=== PATIENT | female | born 1980 | race American Indian/Alaskan Native ===

== ENCOUNTER 2016-08-11 09:25 | Inpatient (IN) | payer MEDICAID ==
[2016-08-11] MEDS ORDERED: ePHEDrine SULFATE IV PRN (11:30)
[2016-08-11] MEDS ORDERED: PITOCin/NS 30 UNIT/500ML 500 ML IV SCH (11:30)
[2016-08-11] MEDS ORDERED: SUBLIMAZE IV PRN (11:30)
[2016-08-11] MEDS ORDERED: LACTATED RINGERS 1,000 ML IV SCH (11:30)
[2016-08-11] MEDS ORDERED: PITOCin/NS 20 UNIT/1000ML DRIP 1,000 ML IV SCH (11:30)
[2016-08-11] MEDS ORDERED: STADOL IV PRN (11:30)
[2016-08-11] MEDS ORDERED: MINERAL OIL PO PRN (12:00)
[2016-08-11] MEDS ORDERED: BRETHINE SUB-Q PRN (12:00)
[2016-08-11] MEDS ORDERED: BRETHINE IVP PRN (12:00)
[2016-08-11] MEDS ORDERED: POLYCILLIN/NS 2 GM/100 ML 100 ML IV ONE (12:00)
[2016-08-11] MEDS: PITOCin/NS 30 UNIT/500ML 500 ML IV SCH ×3 (12:17→14:42)
[2016-08-11 12:35] LABS: Hematocrit 33.3 % (30.3-42.9); Hemoglobin 10.4 gm/dl (10.1-14.3); Mean Corpuscular HGB Conc 31 % (30-34); Mean Corpuscular Volume 70 fl (79-97); Platelet Count 171 K/mm3 (140-440); Red Blood Count 4.75 M/mm3 (3.65-5.03); White Blood Count 8.6 K/mm3 (4.5-11.0)
[2016-08-11 12:45] LABS: Mean Corpuscular Hemoglobin 22 pg (28-32)
[2016-08-11 12:56] LABS: Alanine Aminotransferase 12 units/L (7-56); Uric Acid 6.5 mg/dL (3.5-7.6)
--- NOTE | 2016-08-11 13:25 | History and Physical Report ---
History of Present Illness Date of examination: 08/11/16 Date of admission: 08/11/16 09:38 History of present illness: 36 yo LMP EDC 08/20/16 @ 38.5 weeks gestation presented with SROm this am, clear fluid. Transfer into care at 30 weeks gestation. 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 History of hypertension no meds. Voiced positive FM, denies vaginal bleeding. 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 History: herpes Social history: no significant social history - Obstetrical History Expected Date of Delivery: 08/20/16 Actual Gestation: 38 Week(s) 5 Day(s) : 2 Para: 1 (7.3oz male 1997) Hx # Term Pregnancies: 1 Number of Living Children: 1 Medications and Allergies Allergies Allergy/AdvReac Type Severity Reaction Status Date / Time Sulfa (Sulfonamide Allergy Swelling Verified 04/24/15 10:25 Antibiotics) THORAT AND FACIAL Home Medications Medication Instructions Recorded Confirmed Last Taken Type L.acidoph,Paracasei, B.lactis 1 each PO QDAY 04/24/15 05/02/15 05/01/15 History [Probiotic] Mv,Ca,Min/Iron Fum/FA/Lyco/Lut 1 each PO QDAY 04/24/15 05/02/15 05/01/15 History [Complete Multi Tablet] buPROPion [Wellbutrin] 75 mg PO BID 04/24/15 05/02/15 05/01/15 History Losartan/Hydrochlorothiazide 1 tab PO QDAY 04/29/15 05/02/15 05/01/15 History [Hyzaar 100-25 TAB] Active Meds: Active Medications Butorphanol Tartrate (Stadol) 2 mg IV Q2H PRN PRN Reason: Pain , Severe (7-10) Ephedrine Sulfate (Ephedrine Sulfate) 10 mg IV Q2M PRN PRN Reason: Hypotension Stop: 08/11/16 15:30 Fentanyl (Sublimaze) 100 mcg IV Q2H PRN PRN Reason: Labor Pain Ampicillin Sodium (Polycillin/Ns 1 Gm/50 Ml) 50 mls @ 100 mls/hr IV Q4H TEMO PRN Reason: Protocol Lactated Ringer's (Lactated Ringers) 1,000 mls @ 125 mls/hr IV DIRECT TEMO Last Admin: 08/11/16 12:14 Dose: 125 mls/hr Oxytocin/Sodium Chloride (Pitocin/Ns 20 Unit/1000ml Drip) 1,000 mls @ 125 mls/ hr IV DIRECT TEMO Oxytocin/Sodium Chloride (Pitocin/Ns 30 Unit/500ml) 500 mls @ 2 mls/hr IV TITR TEMO PRN Reason: Protocol Last Admin: 08/11/16 12:17 Dose: 2 mls/hr Oxytocin/Sodium Chloride (Pitocin/Ns 30 Unit/500ml) 500 mls @ 1 mls/hr IV TITR TEMO; 1 MILLIUNITS/MIN PRN Reason: Protocol Mineral Oil (Mineral Oil) 30 ml PO QHS PRN PRN Reason: Constipation Review of Systems All systems: negative Genitourinary: deferred, normal appearance, leakage of fluid, contractions, no genital sores - Vital Signs Vital signs: Vital Signs Pulse Pulse Ox 85 99 08/11/16 09:56 08/11/16 09:56 Temp Pulse Resp BP Pulse Ox 72 140/84 99 08/11/16 13:16 08/11/16 12:18 08/11/16 13:16 - Physical Exam Breasts: Positive: deferred Abdomen: Positive: normal appearance Genitourinary (Female): Positive: normal external genitalia, normal perenium. Negative: perineal/vulvar lesions Vulva: both: normal - Obstetrical FHR: category 1 Uterine Contraction Monitor Mode: External Cervical Dilatation: 2 (per RN exam) Results Result Diagrams: 08/11/16 11:50 08/11/16 11:50 Abnormal lab results 08/11/16 08/11/16 Range/Units 11:50 11:50 MCV 70 L (79-97) fl MCH 22 L (28-32) pg RDW 16.0 H (13.2-15.2) % AST 60 H (5-40) units/L All other labs normal. Assessment and Plan IUP at 38.5 weeks gestation PROM at term Remote from delivery +GBS HSV 2- no lesion P: GBS prophylaxis Pitocin induction PIH panel Anticipate
[2016-08-11] MEDS ORDERED: POLYCILLIN/NS 1 GM/50 ML 50 ML IV SCH (16:00)
--- NOTE | 2016-08-11 16:35 | Procedure Note ---
OB Delivery Note - Delivery Date of Delivery: 08/11/16 (6-12.5oz female @ 1546) Surgeon: TORREY HILLS Estimated blood loss: 100cc - Vaginal Delivery presentation: vertex Delivery position: OA Delivery induction: oxytocin Delivery monitor: external FHT, external uterine Route of delivery: Delivery placenta: spontaneous Delivery cord: 3 umbilical vessels Episiotomy: none Delivery laceration: none Anesthesia: none - Infant B at 1 minute: 8 at 5 minutes: 9 Gender: Female ( viable female spont. in bed. Dr. Helder Mena in room after. skin to skin. Spont placenta. Bleeding scant. No lacerations. Mother and infant stable. +GBS, abx at noon, inadequate treatment.)
[2016-08-11] MEDS ORDERED: PHENERGAN PO PRN (16:36)
[2016-08-11] MEDS ORDERED: BENADRYL PO PRN (16:36)
[2016-08-11] MEDS ORDERED: LANSINOH TP PRN (16:36)
[2016-08-11] MEDS ORDERED: ZOFRAN IV PRN (16:36)
[2016-08-11] MEDS ORDERED: TYLENOL PO PRN (16:36)
[2016-08-11] MEDS ORDERED: DERMOPLAST TP PRN (16:36)
[2016-08-11] MEDS ORDERED: TUCKS PAD TP PRN (16:36)
[2016-08-11] MEDS ORDERED: PHENERGAN PR PRN (16:36)
[2016-08-11] MEDS ORDERED: MILK OF MAGNESIA PO PRN (16:36)
[2016-08-11] MEDS ORDERED: DULCOLAX PR PRN (16:36)
[2016-08-11] MEDS ORDERED: SODIUM CHLORIDE FLUSH SYRINGE 10 ML IV SCH (17:00)
[2016-08-11] MEDS: NORCO 5/325 PO PRN (18:51)
[2016-08-11] MEDS: MOTRIN PO SCH ×2 (18:54→23:27)
[2016-08-11] MEDS: FEOSOL PO SCH (21:40)
[2016-08-12] MEDS: MOTRIN PO SCH ×3 (05:20→18:10)
[2016-08-12] MEDS ORDERED: BOOSTRIX IM ONE (06:00)
[2016-08-12 06:19] LABS: Hematocrit 26.8 % (30.3-42.9); Hemoglobin 8.5 gm/dl (10.1-14.3)
--- NOTE | 2016-08-12 09:07 | Progress Note ---
Assessment and Plan O: VSS AF PP H/H: 8.5/26.8 A: Stable PP Day1 +GBS inadequate treatment Anemia P: Iron BID D/C am Routine orders Subjective - Subjective Date of service: 08/12/16 Interval history: 36 yo LMP EDC 08/20/16 @ 38.5 weeks gestation presented with SROm this am, clear fluid. Transfer into care at 30 weeks gestation. 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 History of hypertension no meds. Voiced positive FM, denies vaginal bleeding. Patient reports: appetite normal, voiding normally, pain well controlled, flatus , ambulating normally [place]: doing well, nursing well Objective - Vital Signs Latest vital signs: Vital Signs Temp Pulse Pulse Resp BP BP Pulse Ox 08/12/16 08:37 98.2 F 60 18 127/72 08/12/16 01:40 98.5 F 66 18 129/80 08/11/16 20:00 98.6 F 64 18 131/77 08/11/16 17:30 98.5 F 62 18 136/80 08/11/16 16:48 93 H 141/72 08/11/16 16:33 79 139/75 08/11/16 16:19 82 140/90 08/11/16 16:03 91 H 130/98 08/11/16 15:45 66 93 08/11/16 15:44 99 H 100 08/11/16 15:42 106 H 169/83 08/11/16 15:34 91 H 99 08/11/16 15:33 83 212/98 08/11/16 15:29 71 99 08/11/16 15:24 86 100 08/11/16 15:22 82 170/99 08/11/16 15:19 88 98 08/11/16 15:14 75 99 08/11/16 15:13 71 176/106 08/11/16 15:09 82 98 08/11/16 15:04 74 98 08/11/16 15:03 85 206/95 08/11/16 14:59 72 99 08/11/16 14:54 74 98 08/11/16 14:49 96 H 98 08/11/16 14:44 77 98 08/11/16 14:43 76 198/105 08/11/16 14:39 74 97 08/11/16 14:34 69 96 08/11/16 14:29 79 98 08/11/16 14:24 65 96 08/11/16 14:19 87 97 08/11/16 14:14 95 H 97 08/11/16 14:06 82 98 08/11/16 14:01 86 98 08/11/16 14:00 98.1 F 08/11/16 13:56 79 97 08/11/16 13:54 71 164/82 08/11/16 13:53 66 92 08/11/16 13:51 78 99 08/11/16 13:46 81 97 08/11/16 13:41 82 98 08/11/16 13:36 73 100 08/11/16 13:33 18 08/11/16 13:31 79 100 08/11/16 13:26 72 100 08/11/16 13:21 75 99 08/11/16 13:16 72 99 08/11/16 13:11 77 100 08/11/16 13:06 73 99 08/11/16 13:01 81 99 08/11/16 12:56 72 99 08/11/16 12:51 75 99 08/11/16 12:46 66 99 08/11/16 12:41 70 99 08/11/16 12:36 63 99 08/11/16 12:31 71 99 08/11/16 12:26 72 99 08/11/16 12:21 69 99 08/11/16 12:18 77 140/84 08/11/16 12:16 72 99 08/11/16 12:11 69 99 08/11/16 12:06 73 99 08/11/16 12:01 82 99 08/11/16 11:56 66 99 08/11/16 11:51 67 99 08/11/16 11:46 65 99 08/11/16 11:41 71 99 08/11/16 11:36 67 99 08/11/16 11:31 74 99 08/11/16 11:26 68 99 08/11/16 11:21 65 99 08/11/16 11:16 76 99 08/11/16 11:11 74 99 08/11/16 11:06 76 98 08/11/16 11:01 81 98 08/11/16 10:56 70 98 08/11/16 10:51 69 99 08/11/16 10:46 74 99 08/11/16 10:41 67 99 08/11/16 10:36 70 98 08/11/16 10:31 74 98 08/11/16 10:26 65 99 08/11/16 10:21 88 99 08/11/16 10:16 74 99 08/11/16 10:11 67 98 08/11/16 10:06 69 99 08/11/16 10:01 80 99 08/11/16 09:58 85 146/94 08/11/16 09:57 69 140/89 08/11/16 09:56 85 99 Intake and Output 08/11/16 08/12/16 08/12/16 22:59 06:59 14:59 Intake Total 500 845 Output Total 1300 Balance 500 -455 Intake: IV 500 125 PITOCin/NS 20 UNIT/1000ML 500 125 DRIP 1,000 ML @ 125 mls/ hr IV DIRECT TEMO Rx#: [id number] Intake, Free Water 720 Output: Urine 1300 Void 1300 Other: Total, Output Amount 500 Estimated Blood Loss 100 - Exam Breasts: Present: normal Lungs: Present: Normal air movement Abdomen: Present: normal appearance, soft. Absent: distention, tenderness Vulva: both: normal Uterus: Present: normal, firm, fundal height below umbilicus (2 below, ML). Absent: bogginess, tenderness - Labs Labs: Abnormal lab results 08/11/16 08/11/16 08/12/16 Range/Units 11:50 11:50 05:43 Hgb 8.5 L (10.1-14.3) gm/dl Hct 26.8 L D (30.3-42.9) % MCV 70 L (79-97) fl MCH 22 L (28-32) pg RDW 16.0 H (13.2-15.2) % AST 60 H (5-40) units/L
[2016-08-12] MEDS: PRENATAL VITAMIN PO SCH (11:51)
[2016-08-12] MEDS: FEOSOL PO SCH ×2 (11:51→21:51)
[2016-08-12] MEDS ORDERED: M-M-R II VACCINE SUB-Q ONE (16:36)
[2016-08-13] MEDS: MOTRIN PO SCH ×3 (00:10→14:15)
[2016-08-13] MEDS: NORCO 5/325 PO PRN (04:14)
--- NOTE | 2016-08-13 09:03 | Progress Note ---
Assessment and Plan - Patient Problems (1) Active labor at term Current Visit: Yes Status: Acute Plan to address problem: Patient doing well discharge home Subjective - Subjective Date of service: 08/13/16 Interval history: The patient is without any significant complaints. Her pain is being well controlled. Patient reports: appetite normal, voiding normally, pain well controlled [place]: doing well Objective - Vital Signs Latest vital signs: Vital Signs Temp Pulse Resp BP 08/12/16 23:45 98.5 F 80 18 135/83 08/12/16 16:16 9.3 F L 62 18 132/72 Intake and Output 08/12/16 08/13/16 08/13/16 22:59 06:59 14:59 Intake Total 740 480 Output Total 500 Balance 240 480 Intake: Oral 740 Intake, Free Water 480 Output: Urine 500 Void 500 Other: Total, Intake Amount 740 Total, Output Amount 500 # Voids Void 500 1 - Exam Abdomen: Present: normal appearance Uterus: Present: normal, firm
--- NOTE | 2016-08-13 09:04 | Discharge Summary ---
Providers - Providers Date of Admission: 08/11/16 09:38 Date of discharge: 08/13/16 Attending physician: TODD MURPHY Primary care physician: TODD MURPHY Hospitalization Reason for admission: active labor, rupture of membranes Delivery: Other procedures: none Discharge diagnosis: IUP at term delivered [place] baby: female Hospital course: The patient was admitted to labor and delivery with spontaneous rupture membranes. The patient has successful vaginal delivery. course was uneventful. Condition at discharge: Good Disposition: DISCHARGED TO HOME OR SELFCARE - Discharge Diagnoses (1) Active labor at term Status: Acute Plan - Discharge Medications Prescriptions: HYDROcodone/APAP 5-325 [[place] 5/325] 1 each PO Q6HR PRN #30 tablet PRN Reason: Pain Ibuprofen [Motrin] 800 mg PO Q8HR PRN #60 tablet PRN Reason: Pain - Provider Discharge Summary Activity: no sex for 6 weeks, no heavy lifting 4 weeks, no strenuous exercise Diet: routine Instructions: routine Additional instructions: [] Smoking cessation referral if applicable(refer to patient education folder for contact #) [] Refer to [facility] Booklet Call your doctor immediately for: * Fever > 100.5 * Heavy vaginal bleeding ( >1 pad per hour) * Severe persistent headache * Shortness of breath * Reddened, hot, painful area to leg or breast * Drainage or odor from incision. * Keep incision clean and dry at all times and follow doctor's instructions regarding bathing/showering Follow-up in 4 weeks for visit
[2016-08-13] MEDS: FEOSOL PO SCH (14:15)
[2016-08-13] MEDS: PRENATAL VITAMIN PO SCH (14:15)
[2016-08-13 17:04] VITALS: BP 136/90
== END 2016-08-13 17:10 | disposition home or self-care (01) | DRG 774 ==
LOC: TRG 09:25 → LD 09:38 → OB 17:39
PROVIDERS: ADMIT Obstetrics & Gynecology; ATTEND Obstetrics & Gynecology
PROC: 10E0XZZ Delivery of Products of Conception, External Approach (ICD-10-PCS; principal; 2016-08-11)
PROC: 3E033VJ Introduction of Other Hormone into Peripheral Vein, Percutaneous Approach (ICD-10-PCS; 2016-08-11)
PROC: 3E0234Z Introduction of Serum, Toxoid and Vaccine into Muscle, Percutaneous Approach (ICD-10-PCS; 2016-08-12)
DX: O42.92 Full-term premature rupture of membranes, unspecified as to length of time between rupture and onset of labor (principal); O98.52 Other viral diseases complicating childbirth; B00.9 Herpesviral infection, unspecified; O36.8930 Maternal care for other specified fetal problems, third trimester, not applicable or unspecified; O10.92 Unspecified pre-existing hypertension complicating childbirth; O99.824 Streptococcus B carrier state complicating childbirth; O90.81 Anemia of the puerperium; D64.9 Anemia, unspecified; O09.523 Supervision of elderly multigravida, third trimester; Z3A.38 38 weeks gestation of pregnancy; Z37.0 Single live birth; Z88.2 Allergy status to sulfonamides; Z79.899 Other long term (current) drug therapy; Z23 Encounter for immunization
CPT/HCPCS: 36415; 82565; 84450; 84460; 84550; 85014; 85018; 85027; 99211; A6250; G0463; J0290; J0595; J2590; J7120

== ENCOUNTER 2016-09-08 15:28 | Inpatient (IN) | payer MEDICAID ==
[2016-09-08] MEDS ORDERED: MOTRIN PO PRN (15:38)
[2016-09-08] MEDS ORDERED: MYLICON PO PRN (15:38)
[2016-09-08] MEDS ORDERED: ALUM-MAG HYDROX-SIMETH 200-200-20MG/5ML PO PRN (15:38)
[2016-09-08] MEDS ORDERED: ZOFRAN IV PRN (15:38)
[2016-09-08] MEDS ORDERED: SENOKOT S PO PRN (15:38)
[2016-09-08] MEDS ORDERED: NORCO 5/325 PO PRN (15:38)
[2016-09-08] MEDS ORDERED: COLACE PO PRN (15:38)
[2016-09-08] MEDS ORDERED: MILK OF MAGNESIA PO PRN (15:38)
[2016-09-08] MEDS ORDERED: AMBIEN PO PRN (15:38)
[2016-09-08] MEDS ORDERED: TYLENOL PO PRN (15:38)
--- NOTE | 2016-09-08 15:53 | History and Physical Report ---
History of Present Illness Date of examination: 09/08/16 Chief complaint: elevated BP with PIH S&S History of present illness: 36 yo with viable female 08/11/16 presented to office for routine OB visit with BP 142/92, 170/110. Also voiced history of chronic hypertension and migraine headache with incidence of blurred vision, and scotoma, denies epigastic pain. Patient was a transfer into our care at 30 weeks and was takin Labetalol 200mg BID but stopped because BP where WNL. Past History Past Medical History: hypertension [employer] History: herpes - Obstetrical History : 2 Para: 2 Medications and Allergies Allergies Allergy/AdvReac Type Severity Reaction Status Date / Time Sulfa (Sulfonamide Allergy Swelling Verified 04/24/15 10:25 Antibiotics) THORAT AND FACIAL Home Medications Medication Instructions Recorded Confirmed Last Taken Type L.acidoph,Paracasei, B.lactis 1 each PO QDAY 04/24/15 05/02/15 05/01/15 History [Probiotic] Mv,Ca,Min/Iron Fum/FA/Lyco/Lut 1 each PO QDAY 04/24/15 05/02/15 05/01/15 History [Complete Multi Tablet] buPROPion [Wellbutrin] 75 mg PO BID 04/24/15 05/02/15 05/01/15 History Losartan/Hydrochlorothiazide 1 tab PO QDAY 04/29/15 05/02/15 05/01/15 History [Hyzaar 100-25 TAB] Vit-Fe Fumar-FA [ 1 tab PO QDAY 08/11/16 08/11/16 08/10/16 History Vitamin] HYDROcodone/APAP 5-325 [[place] 1 each PO Q6HR PRN #30 tablet 08/13/16 Unknown Rx 5/325] Ibuprofen [Motrin] 800 mg PO Q8HR PRN #60 tablet 08/13/16 Unknown Rx Active Meds: Active Medications Acetaminophen (Tylenol) 650 mg PO Q4H PRN PRN Reason: Pain MILD(1-3)/Fever >100.5/CHAPIN Acetaminophen/Hydrocodone Bitart ([place] 5/325) 1 each PO Q4H PRN PRN Reason: sevre pain Al Hydrox/Mg Hydrox/Simethicone (Alum-Mag Hydrox-Simeth 025-789-90mn/5ml) 30 ml PO Q6H PRN PRN Reason: Indigestion Docusate Sodium (Colace) 100 mg PO Q12H PRN PRN Reason: Constipation Lactated Ringer's (Lactated Ringers) mls @ 75 mls/hr IV DIRECT TEMO Magnesium Sulfate (Magnesium Sulfate 40gm/1000ml) 1,000 mls @ 50 mls/hr IV DIRECT TEMO PRN Reason: 2 GM/HR Magnesium Sulfate (Magnesium Sulfate 4gm/100ml) mls @ 300 mls/hr IV ONCE ONE Stop: 09/08/16 15:39 Ibuprofen (Motrin) 800 mg PO Q8HR PRN PRN Reason: Pain Magnesium Hydroxide (Milk Of Magnesia) 30 ml PO QHS PRN PRN Reason: Laxative Effect Multivitamins/Iron/Calcium ( Vitamin) 1 each PO QDAY TEMO Ondansetron HCl (Zofran) 4 mg IV Q6H PRN PRN Reason: Nausea And Vomiting Senna/Docusate Sodium (Senokot S) 2 tab PO Q12H PRN PRN Reason: Laxative Effect Simethicone (Mylicon) 80 mg PO Q6H PRN PRN Reason: Gas pain Zolpidem Tartrate (Ambien) 10 mg PO ONCE PRN PRN Reason: Sleep Review of Systems Constitutional: chronic headaches, no weight loss, no weight gain, no anorexia Eyes: deferred Ears, nose, mouth and throat: deferred Cardiovascular: high blood pressure, no edema, no syncope, no lightheadedness, no shortness of breath, no leg edema Respiratory: no cough Breasts: no deferred Gastrointestinal: no abdominal pain, no nausea, no vomiting Genitourinary: normal appearance, no vaginal bleeding, no vaginal discharge, no leakage of fluid, no pelvic pain, no genital sores Rectal Exam: deferred, no hemorrhoids Integumentary: deferred Neurological: headaches, migraines, no loss of vision Psychiatric: anxiety (nervous about scheduling childcare for BTL) - Physical Exam Breasts: Positive: deferred Abdomen: Positive: normal appearance, soft. Negative: distention, tenderness Genitourinary (Female): Positive: normal external genitalia, normal perenium Vagina: Positive: normal moisture Results All other labs normal. Assessment and Plan A: Four weeks History of CHTN History of Migraine CHAPIN Elevated BP P: Admit for preclamspia Magnesium Sulfate Routine PIH labs consult
[2016-09-08] MEDS ORDERED: MAGNESIUM SULFATE 40GM/1000ML 40 GM/1,000 ML BAG IV SCH (16:00)
[2016-09-08] MEDS ORDERED: MAGNESIUM SULFATE 4GM/100ML 4 GM/100 ML BAG IV ONE (17:00)
[2016-09-08] MEDS ORDERED: LACTATED RINGERS 1,000 ML IV SCH (17:00)
[2016-09-08 18:08] LABS: Hematocrit 35.3 % (30.3-42.9); Hemoglobin 10.9 gm/dl (10.1-14.3); Mean Corpuscular HGB Conc 31 % (30-34); Platelet Count 231 K/mm3 (140-440); Red Blood Count 5.09 M/mm3 (3.65-5.03); Red Cell Distribution Width 15.9 % (13.2-15.2); White Blood Count 6.4 K/mm3 (4.5-11.0)
[2016-09-08 18:11] LABS: Mean Corpuscular Hemoglobin 21 pg (28-32); Mean Corpuscular Volume 69 fl (79-97)
[2016-09-08 18:34] LABS: Alanine Aminotransferase 15 units/L (7-56); Lactate Dehydrogenase 174 units/L (91-180); Uric Acid 7.5 mg/dL (3.5-7.6)
[2016-09-08 19:30] LABS: Bilirubin,Urine NEG (Negative); Blood,Urine NEG (Negative); Ketones,Urine NEG (Negative); Leukocyte Esterase,Urine TR (Negative); Mucus,Urine FEW /HPF; Nitrite,Urine NEG (Negative); Protein,Urine <15 mg/dL mg/dL (Negative); Urobilinogen,Urine < 2.0 mg/dL (<2.0)
[2016-09-09 06:00] VITALS: BP 131/82
[2016-09-09] MEDS ORDERED: PRENATAL VITAMIN PO SCH (10:00)
--- NOTE | 2016-09-10 09:44 | Admit Criteria Form ---
Admission Criteria Documentation: HYPERTENSIVE DISORDERS OF Clinical Indications for Admission to Inpatient Care (Place 'X' for any and all applicable criteria): Admission is indicated for ANY ONE of the following (1)(2)(3)(4)(5): [ ]I. Eclampsia[A][B] [ ]II. Preeclampsia with severe features (ie, severe preeclampsia) indicated by ANY ONE of the following[B][C]: [ ]a) SBP greater than or equal to 160 mm Hg or DBP greater than or equal to 110 mm Hg on 2 occasions at least 4 hours apart while the patient is at bed rest (unless antihypertensive therapy is initiated before this time) [ ]b) Platelet count less than 100,000/mm3 (100 x109/L) [ ]c) Impaired liver function as indicated by ANY ONE of the following: [ ]i. Elevation of liver enzymes (eg, SGOT, SGPT) to twice normal concentration [ ]ii. Severe persistent right upper quadrant or epigastric pain unresponsive to medication and not accounted for by alternative diagnosis [ ]d) Progressive renal insufficiency indicated by ANY ONE of the following: [ ]i. Serum creatinine concentration greater than 1.1 mg/dL (97 micromoles/L) [ ]ii. Doubling (from baseline) of serum creatinine concentration in the absence of other renal disease [ ]e) Pulmonary edema [ ]f) Cerebral or visual symptoms (eg, headache, Altered mental status , changes in vision) [ ]III. Delivery planned due to nonsevere preeclampsia as indicated by ALL of the following: [ ]a) Nonsevere preeclampsia present as indicated by ALL of the following: [ ]i. Woman at 20 or more weeks' gestation [ ]ii. New-onset SBP greater than or equal to 140 mm Hg but less than 160 mm Hg or DBP greater than or equal to 90 mm Hg but less than 110 mm Hg on 2 occasions at least 4 hours apart [ ]iii. Proteinuria present as indicated by ANY ONE of the following: [ ]A. Urinary protein excretion greater than or equal to 300 mg per 24-hour collection (or this amount extrapolated from a shorter timed collection) [ ]B. Protein/creatinine ratio greater than or equal to 0.3 (measured in mg/dL) [ ]b) Delivery indicated due to ANY ONE of the following: [ ]i. Gestational age of 37 0/7 weeks or more [ ]ii. Gestational age of 34 0/7 weeks to 36 6/7 weeks and ANY ONE of the following: [ ]A. Progressive labor or rupture of membranes [ ]B. Abnormal biophysical profile [ ]C. Suspected abruptio placentae [ ]D. Ultrasound estimate of weight less than 5th percentile [ ]E. Other indication for delivery [ ]IV. Delivery planned due to gestational hypertension[D] because of ANY ONE of the following: [ ]a) Delivery indicated because gestational age of 37 0/7 weeks or more has been reached [ ]b) Gestational age of 34 0/7 weeks to 36 6/7 weeks for which delivery is indicated because of ANY ONE of the following: [ ]i. Progressive labor or rupture of membranes [ ]ii. Abnormal biophysical profile [ ]iii. Suspected abruptio placentae [ ]iv. Ultrasound estimate of weight less than 5th percentile [ ]v. Other indication for delivery [ ]V. Hypertension of any category[E] during with acute end organ damage as indicated by ANY ONE of the following: [ ]a) Hypertensive encephalopathy (eg, Altered mental status that is severe or persistent )(11) [ ]b) Cerebral infarction [ ]c) Intracranial hemorrhage [ ]d) Myocardial ischemia or infarction [ ]e) Pulmonary edema [ ]f) Aortic dissection [ ]g) Seizure [ ]h) Papilledema [ ]i) Microangiopathic hemolytic anemia [ ]j) Visual loss [ ]k) Acute renal failure [ ]) Hypertension during with evidence of compromise as indicated by ANY ONE of the following: [ ]a) Abnormal heart tones [ ]b) Abnormal stress test [ ]c) Abnormal biophysical profile [X ]VII) patient requires inpatient control of blood pressure indicated by (see Hypertensive Disorders of : [facility] guideline as appropriate) ALL of the following: [X]a) SBP is greater than or equal to 160 mm Hg or DBP is greater than or equal to 105 mm Hg [X ]b) Blood pressure cannot be reduced below these levels with outpatient or observation care treatment (eg, oral medications not effective) Extended stay beyond goal length of stay may be needed for : [ ]a) Eclampsia [ ]b) Ongoing compromise [ ]c) Complications of hypertensive disorders of [ ]d) Active comorbidities (eg, heart failure, poorly controlled diabetes, renal insufficiency) [ ]e) Persistent hypertension [ ]f) Delivery planned The original [facility] content created by [facility] has been revised. The portions of the content which have been revised are identified through the use of italic text or in bold, and [facility] has neither reviewed nor approved the modified material. All other unmodified content is copyright [facility]. Please see references footnoted in the original [facility] edition 2016. Admission Criteria Met: Yes
== END 2016-09-09 01:00 | disposition left against medical advice (07) | DRG 776 ==
LOC: UNDOADMIN 15:28 → 3A 15:28 → OB 16:43
PROVIDERS: ADMIT Obstetrics & Gynecology; ATTEND Obstetrics & Gynecology
DX: O11.5 Pre-existing hypertension with pre-eclampsia, complicating the puerperium (principal); O90.89 Other complications of the puerperium, not elsewhere classified; G43.909 Migraine, unspecified, not intractable, without status migrainosus; H53.8 Other visual disturbances; Z88.2 Allergy status to sulfonamides; Z79.899 Other long term (current) drug therapy; Z53.21 Procedure and treatment not carried out due to patient leaving prior to being seen by health care provider
CPT/HCPCS: 36415; 81001; 82565; 83615; 83735; 84450; 84460; 84550; 85027; J3475; J7120